=== PATIENT | female | born 1975 | race African-American/Black ===

== ENCOUNTER → 2021-07-07 | Outpatient (CLI) | payer BC | LOC: MC.RAD 09:55 | DX: Z12.31 Encounter for screening mammogram for malignant neoplasm of breast (principal); N64.4 Mastodynia ==

== ENCOUNTER → 2023-04-11 | Outpatient (CLI) | payer BC | LOC: COL.RAD 07:00 → MC.RAD 07:03 | DX: Z12.31 Encounter for screening mammogram for malignant neoplasm of breast (principal) ==